=== PATIENT | male | born 1985 | race Caucasian/White ===

== ENCOUNTER → 2021-02-10 11:20 | Outpatient (CLI) | payer BC, SELFPAY ==
--- NOTE | ~2021-02-10 | XR_ITS ---
XR chest 2V DATE: 02/10/2021 11:36 INDICATION: Chronic cough for 8 weeks. TECHNIQUE: PA and lateral views COMPARISON: None FINDINGS: Normal heart size. No hilar or mediastinal enlargement. No pulmonary infiltrate or consol idation, pulmonary vascular congestion or pleural effusion or pneumothorax. Surgical clip overlying left abdomen. Mild thoracic dextroscoliosis. IMPRESSION: No active cardiopulmonary disease Reviewed, dictated and finalized at location [facility]
== END ==
PROVIDERS: PCP Internal Medicine; Visit Provider Internal Medicine
DX: R05.3 Chronic cough (principal); M41.9 Scoliosis, unspecified
CPT/HCPCS: 71046

== ENCOUNTER 2022-05-18 01:50 | Day surgery (SDC) | payer BC, SELFPAY ==
[2022-05-06 14:15] VITALS: BMI 23.8
[2022-05-18 09:54] VITALS: BP 120/93; PULSE 82; RESP 17; TEMP 36.3; O2SAT 100
--- NOTE | 2022-05-18 09:59 | P.PNAN_ITS ---
Anes - Initial Pre Proc Eval Procedure: Operation Date: 05/18/22 11:15 Proposed Procedures p Esophagogastroduodenoscopy & Colonoscopy - George Grullon MD Date/Time: 05/18/22 09:59 Surgeon: George Grullon MD Pre Op Diagnosis: eosinophilic esophagitis,Fecal Urgency,Loose Stool Patient Data Age: 37 Gender: M Height: 1.83 m Weight: 78.5 kg Last Vital Signs Temp 36.3 C L 05/18/22 09:54 Pulse 82 05/18/22 09:54 Resp 17 05/18/22 09:54 BP 120/93 H 05/18/22 09:54 Pulse Ox 100 05/18/22 09:54 O2 Del Method Room Air 05/18/22 09:54 Allergies Allergy/AdvReac Type Severity Reaction Status Date / Time No Known Allergies Allergy Verified 05/18/22 09:53 Home Medications Medication Instructions Recorded Confirmed Type omeprazole 20 mg capsule,delayed 20 mg PO DAILY 06/10/20 05/18/22 History release etanercept 50 mg/mL (1 mL) 50 mg subcut WEEKLY 03/25/22 05/18/22 History subcutaneous pen injector folic acid 1 mg tablet 1 mg PO DAILY 03/25/22 05/18/22 History methotrexate sodium 10 mg tablet 10 mg PO WEEKLY 03/25/22 05/18/22 History Patient hx anesthesia problems: none Family hx anesthesia problems: none Results Review: All pre-operative results and documents have been reviewed as part of the pre- operative evaluation. [facility] Past Medical History Medical History (Updated 03/25/22 @ 14:32 by George Grullon MD) Abdominal cramping Fecal urgency GERD with esophagitis Psoriatic arthritis Seronegative arthritis Family History Family History Father Diabetes mellitus Testicular cancer CLL (chronic lymphocytic leukemia) Hairy cell leukemia Esophageal adenocarcinoma Grandparent Alcoholism Diabetes mellitus Hypertension Heart disease Grandparent Diabetes mellitus Social History Social History Smoking status: Never smoker Alcohol intake: current Drinks per week: 1 Substance use: never Substance use type: does not use Living arrangements: with family Occupation/Education: occupation 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[employer] Gender identity (if verbalized by the patient): Male Sexual Orientation (if Verbalized by the Patient): Straight or Heterosexual Spiritual care concerns: No Anes - Eval Final PreProcedure Day of Procedure 05/18/22 09:59 Patient weight: normal Heart: regular rate and rhythm Lungs: clear to auscultation and normal air movement Airway: Mallampati scale class II Neurological: alert and oriented Last oral intake: >/= 8 hours ASA classification: II Emergent: no Anesthetic plan: proceed Anesthesia type and monitoring: general GIVS Results Review: All pre-operative results and documents have been reviewed as part of the pre- operative evaluation. Informed Consent: The patient's anesthetic plan and its attendant risks and benefits were discussed with the patient/family/POA. Questions were solicited and answers provided to the satisfaction of the patient/family/POA.
[2022-05-18] MEDS: LACTATED RINGERS 1,000 ML 150 ML IV CONT (10:10)
--- NOTE | 2022-05-18 10:57 | PM.HPGS ---
History of Present Illness History of Present Illness Consent: Risks, benefits, and alternatives have been discussed and questions answered. Patient agrees to proceed with procedure. Chief complaint: eosinophilic esophagitis,Fecal Urgency,Loose Stool Narrative: Adrien Lofton is a 37 year old male with gerd controlled with ppi, also was diagnosed with eoe but no dysphagia, egd over 2 years ago. Also had mucus in stool and some blood in stool but resolved. Never had colonoscopy. Review of Systems Constitutional: Constitutional: Denies headache(s) and Denies weakness Eyes: Eyes: Denies blurry vision ENT: Reports Normal hearing present, Denies headache(s) and Denies neck pain Cardiovascular: Cardiovascular: Denies chest pain and Denies dyspnea Respiratory: Respiratory: Denies dyspnea Gastrointestinal: Gastrointestinal: Reports no additional gastrointestinal complaints Genitourinary: Genitourinary: Denies dysuria Musculoskeletal: Musculoskeletal: Denies neck pain Integumentary/Breasts: Skin/Breast: Denies dry skin Neurologic: Reports Normal hearing present, Denies headache(s) and Denies weakness Psychiatric: Psychiatric: Denies anxiety Endocrine: Endocrine: Denies change in body appearance Hematologic/Lymphatic: Hematologic/Lymphatic: Denies easy bleeding Allergic/Immunologic: Allergic/Immunologic: Denies urticaria PMFSH Past Medical History Medical History (Updated 03/25/22 @ 14:32 by George Grullon MD) Abdominal cramping Fecal urgency GERD with esophagitis Psoriatic arthritis Seronegative arthritis Family History Family History Father Diabetes mellitus Testicular cancer CLL (chronic lymphocytic leukemia) Hairy cell leukemia Esophageal adenocarcinoma Grandparent Alcoholism Diabetes mellitus Hypertension Heart disease Grandparent Diabetes mellitus Social History Social History Smoking status: Never smoker Alcohol intake: current Drinks per week: 1 Substance use: never Substance use type: does not use Living arrangements: with family Occupation/Education: occupation 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[employer] Gender identity (if verbalized by the patient): Male Sexual Orientation (if Verbalized by the Patient): Straight or Heterosexual Spiritual care concerns: No Meds Home Medications and Allergies Home Medications Medication Instructions Recorded Confirmed Type omeprazole 20 mg capsule,delayed 20 mg PO DAILY 06/10/20 05/18/22 History release etanercept 50 mg/mL (1 mL) 50 mg subcut WEEKLY 03/25/22 05/18/22 History subcutaneous pen injector folic acid 1 mg tablet 1 mg PO DAILY 03/25/22 05/18/22 History methotrexate sodium 10 mg tablet 10 mg PO WEEKLY 03/25/22 05/18/22 History Allergies Allergy/AdvReac Type Severity Reaction Status Date / Time No Known Allergies Allergy Verified 05/18/22 09:53 Vital Signs Vital Signs - 24 hr 05/18/22 09:54 Temperature 97.4 F L Pulse Rate 82 Respiratory Rate 17 Blood Pressure 120/93 H Pulse Oximetry 100 Oxygen Delivery Room Air Exam Const: General: comfortable and no acute distress HENMT: Face/Nose/Sinus: Normal nares present Eyes: General: appearance normal, both eyes and all related structures Neck: Neck: no JVD Resp: Auscultation: clear to auscultation bilaterally Cardio: Rate: regular rate Rhythm: regular rhythm GI: Inspection: non-distended GI Palp: Yes Soft to palpation Skin: General skin exam: normal color Neuro: General: gait normal Speech: normal speech Extrem: General: normal to inspection Psych: Mental Status: mental status grossly normal Assessment and Plan Assessment and plan (1) GERD with esophagitis: Code(s): K21.00 - Gastro-esophageal reflux disease with esophagitis, without bleedin
--- NOTE | 2022-05-18 11:30 | SUR.OPER ---
EGD END 1121 COLONOSCOPY START 1126
[2022-05-18 11:40] VITALS: BP 106/65; PULSE 81; RESP 16; O2SAT 99
[2022-05-18 11:50] VITALS: BP 130/62; PULSE 83; RESP 20; O2SAT 99
[2022-05-18 12:00] VITALS: BP 129/85; PULSE 70; RESP 16; O2SAT 100
== END 2022-05-18 12:05 | disposition home or self-care (01) ==
PROVIDERS: PCP Family Medicine; Visit Provider Internal Medicine Gastroenterology
PROC: 0DJ08ZZ Inspection of Upper Intestinal Tract, Via Natural or Artificial Opening Endoscopic (ICD-10-PCS; CPT 43235; principal; 2022-05-18 11:15)
DX: K92.1 Melena (principal); R15.2 Fecal urgency; K21.9 Gastro-esophageal reflux disease without esophagitis; K44.9 Diaphragmatic hernia without obstruction or gangrene; L40.50 Arthropathic psoriasis, unspecified; M06.00 Rheumatoid arthritis without rheumatoid factor, unspecified site; Z87.19 Personal history of other diseases of the digestive system; Z79.631 Long term (current) use of antimetabolite agent; Z79.620 Long term (current) use of immunosuppressive biologic
CPT/HCPCS: 45378; 43239; 88305; J2704; J7120